=== PATIENT | male | born 1960 | race African-American/Black ===

== ENCOUNTER 2024-06-08 03:22 | Emergency (ER) | payer MEDICARE, MEDICAID ==
[~2024-06-08] VITALS: Ht 160 cm; Wt 72.8 kg
[~2024-06-08 03:22] MED LIST: ALBU6.7H15 INH; AMLO5TAB88 PO; CEFD300C3 PO; COR12 PO; FAMO-135 MT; FAMO20TA8 PO; FLUT1DIS3 INH; HYDR100T11 PO; ISOS60TA76 PO; LIP40 PO; MULT-1146 PO; ONDA4TAB50 MT; P20 PO
[2024-06-08 04:47] LABS: BASOPHILS % 0.7 % (0.0-2.0); HEMATOCRIT. 32.4 % (42.0-52.0); HEMOGLOBIN. 10.4 g/dL (14.0-18.0); LYMPHOCYTES % 13.4 % (20.0-50.0); MEAN CORPUSCULAR HEMOGLOBIN 26.4 pg (28.0-32.0); MEAN CORPUSCULAR HGB CONC 32.3 g/dL (31.0-37.0); MEAN CORPUSCULAR VOLUME 81.9 fL (80.0-94.0); MEAN PLATELET VOLUME 5.9 fl (7.4-10.4); MONOCYTES % 5.5 % (2.0-8.0); NEUTROPHILS % 79.4 % (40.0-76.0); PLATELET 552 x1000/uL (130-400); RED BLOOD CELL COUNT 3.96 mill/uL (4.7-6.1); RED CELL DISTRIBUTION WIDTH 16.9 % (11.6-14.6); WHITE BLOOD COUNT 12.6 x1000/uL (4.5-11.0)
[2024-06-08 04:53] LABS: CHLORIDE 107 mEq/L (98-107); SODIUM 138 mEq/L (136-145)
[2024-06-08 04:54] LABS: CARBON DIOXIDE 25 mEq/L (21-32)
[2024-06-08 04:55] LABS: CALCIUM 8.2 mg/dL (8.7-10.4)
[2024-06-08 04:59] LABS: GLUCOSE 108 mg/dL (70-105); UREA NITROGEN BLOOD 23 mg/dL (9-23)
[2024-06-08 05:01] LABS: CREATININE 1.6 mg/dL (0.6-1.3); ETHANOL BLOOD < 10 mg/dL (<10)
[2024-06-08 05:03] LABS: TROPONIN I HIGH SENSITIVITY 123 ng/L (3.0-53)
[2024-06-08 05:27] VITALS: BP 208/144; TEMP 36.44736; O2SAT 96
[2024-06-08 05:30] VITALS: PULSE 113; RESP 20; O2SAT 92
[2024-06-08] MEDS: ALBUTEROL (0.5%) 2.5MG/0.5ML NEB HHN ONE (05:30)
[2024-06-08] MEDS: ASPIRIN 325MG EC TABLET PO NR (05:36)
[2024-06-08] MEDS: FUROSEMIDE 40MG TABLET PO NR (05:36)
[2024-06-08] MEDS: HYDROCHLOROTHIAZIDE 25MG TABLET PO ONE (05:36)
== END 2024-06-08 05:53 | disposition left against medical advice (07) ==
LOC: ER 03:22
DX: I21.4 Non-ST elevation (NSTEMI) myocardial infarction (principal); I16.0 Hypertensive urgency; J45.909 Unspecified asthma, uncomplicated; F12.90 Cannabis use, unspecified, uncomplicated; Z79.899 Other long term (current) drug therapy
CPT/HCPCS: 80048; 80320; 83880; 85025; 84484; 36415; 71045; 94640; 93005; 99285; Z7610 ×3; G0480